=== PATIENT | female | born 1945 | race African-American/Black ===

== ENCOUNTER 2017-05-25 11:24 | Outpatient (CLI) | payer OTHER ==
[~2017-05-25 11:24] MED LIST: ASA81 MG PO; ATORVASTATIN CA10 MG PO; CARDURA XL4 MG/BOTTL PO; DETROL LA4 MG PO; DILTIAZEM 24HR120 MG PO; DITROPAN XL15 MG PO; DULOXETINE HCL30 MG PO; HYOMAX; HYZAAR 100-251 UDTAB PO; LYRICA100 MG PO; OMEPRAZOLE40 MG PO; PANTOPRAZOLE SO40 MG PO; PLAQUENIL PO; PLAVIX75 MG PO; ROBINUL FORTE2 MG PO; TOBREX5 ML OP; TOPROL XL100 MG PO; TRILIPIX; ZYLOPRIM300 MG PO
== END 2017-05-25 11:30 | disposition home or self-care (01) ==
LOC: LAB 11:24
DX: D64.89 Other specified anemias (principal); D68.8 Other specified coagulation defects; E03.8 Other specified hypothyroidism

== ENCOUNTER 2017-05-25 12:06 | Outpatient (CLI) | payer OTHER | END 2017-05-25 15:13 | disposition home or self-care (01) | LOC: RAD 12:06 | DX: R07.1 Chest pain on breathing (principal) ==

== ENCOUNTER 2017-05-31 13:13 | Inpatient (IN) | payer OTHER ==
[~2017-05-31] VITALS: Ht 165.1 cm; Wt 79.8 kg
[2017-05-31] MEDS ORDERED: OMEGA 3 1,0001 EACH PO (14:16)
[2017-05-31] MEDS ORDERED: SOTALOL80 MG PO (14:17)
[2017-05-31] MEDS ORDERED: INFUVITE50 ML IV (14:18)
[2017-05-31] MEDS ORDERED: CARDURA1 MG PO (14:18)
[2017-05-31] MEDS ORDERED: PLAQUENIL PO (14:18)
[2017-05-31] MEDS ORDERED: SINGULAIR10 MG PO (14:19)
[2017-05-31] MEDS ORDERED: DITROPAN XL15 MG PO (14:19)
[2017-05-31] MEDS ORDERED: SALINE SOLUTIO360 ML (14:20)
[2017-06-08] MEDS ORDERED: ACETAMINOPHEN-1 EAC2 PO (09:54)
[2017-06-08] MEDS ORDERED: AMOXICILLIN875 MG PO (09:54)
[2017-06-08] MEDS ORDERED: LYRICA150 MG PO (09:54)
[2017-06-08] MEDS ORDERED: CLONAZEPAM1 MG PO (09:54)
[2017-06-08] MEDS ORDERED: DOCUSATE SODIU100 MG PO (09:54)
== END 2017-06-08 17:45 | DRG 455 ==
LOC: O/R 06-07 05:00 → SURG 06-07 05:00
PROVIDERS: Orthopaedic Surgery Orthopaedic Surgery of the Spine
PROC: 0SG0071 Fusion of Lumbar Vertebral Joint with Autologous Tissue Substitute, Posterior Approach, Posterior Column, Open Approach (ICD-10-PCS; 2017-06-07)
PROC: 0ST20ZZ Resection of Lumbar Vertebral Disc, Open Approach (ICD-10-PCS; 2017-06-07)
PROC: 0SG00AJ Fusion of Lumbar Vertebral Joint with Interbody Fusion Device, Posterior Approach, Anterior Column, Open Approach (ICD-10-PCS; 2017-06-07)
PROC: 07DS3ZZ Extraction of Vertebral Bone Marrow, Percutaneous Approach (ICD-10-PCS; 2017-06-07)
PROC: 0SG00A0 Fusion of Lumbar Vertebral Joint with Interbody Fusion Device, Anterior Approach, Anterior Column, Open Approach (ICD-10-PCS; principal; 2017-06-07 07:00)
DX: M48.061 Spinal stenosis, lumbar region without neurogenic claudication (principal); M47.26 Other spondylosis with radiculopathy, lumbar region; M51.16 Intervertebral disc disorders with radiculopathy, lumbar region; I10 Essential (primary) hypertension

== ENCOUNTER → 2017-06-27 | Emergency (ER) | payer OTHER ==
[~2017-06-27] VITALS: Ht 165.1 cm; Wt 81.6 kg
[~2017-06-27] MED LIST changes: +ACETAMINOPHEN-1 EAC2 PO; +AMOXICILLIN875 MG PO; +CARDURA1 MG PO; +CLONAZEPAM1 MG PO; +DOCUSATE SODIU100 MG PO; +INFUVITE50 ML IV; +LYRICA150 MG PO; +OMEGA 3 1,0001 EACH PO; +SALINE SOLUTIO360 ML; +SINGULAIR10 MG PO; +SOTALOL80 MG PO
== END | disposition home or self-care (01) ==
LOC: ER 17:19
DX: K20.9 Esophagitis, unspecified (principal)

== ENCOUNTER 2017-07-10 11:38 | Outpatient (CLI) | payer OTHER | END 2017-07-10 13:45 | disposition home or self-care (01) | LOC: RX STUDY 11:38 | DX: R13.10 Dysphagia, unspecified (principal) ==

== ENCOUNTER 2017-12-20 09:42 | Outpatient (CLI) | payer OTHER | END 2017-12-20 09:47 | disposition home or self-care (01) | LOC: LAB 09:42 | DX: D64.89 Other specified anemias (principal); D78.89 Other postprocedural complications of the spleen; D68.8 Other specified coagulation defects; N39.0 Urinary tract infection, site not specified; R82.8 Abnormal findings on cytological and histological examination of urine ==

== ENCOUNTER → 2018-02-26 14:53 | Outpatient (CLI) | payer OTHER | END | disposition home or self-care (01) | LOC: LAB 14:53 | DX: D64.89 Other specified anemias (principal); D78.89 Other postprocedural complications of the spleen; D68.8 Other specified coagulation defects; N39.0 Urinary tract infection, site not specified; R07.89 Other chest pain ==

== ENCOUNTER 2018-03-13 05:46 | Day surgery (SDC) | payer OTHER ==
[2018-03-13] MEDS ORDERED: ULTRACET PO (11:33)
[2018-03-13] MEDS ORDERED: CIPRO100 MG PO (11:35)
== END 2018-03-13 13:40 | disposition home or self-care (01) ==
LOC: CIR.AMB 05:46
DX: N39.3 Stress incontinence (female) (male) (principal); N32.81 Overactive bladder
CPT/HCPCS: 64581; C1778

== ENCOUNTER → 2018-03-20 | Day surgery (SDC) | payer OTHER ==
[~2018-03-20] MED LIST changes: +CIPRO100 MG PO; +ULTRACET PO
== END | disposition home or self-care (01) ==
LOC: CIR.AMB 07:15
DX: N39.46 Mixed incontinence (principal); N32.81 Overactive bladder
CPT/HCPCS: 64590; C1767

== ENCOUNTER 2019-10-23 16:09 | Emergency (ER) | payer OTHER ==
[~2019-10-23] VITALS: Ht 165.1 cm; Wt 79.4 kg
[~2019-10-23 16:09] MED LIST changes: +BETAPACE80 MG PO; +CANDESARTAN-HC1 EAC2 PO; +DILT-XR120 MG PO; +DUCOSATE PO; +FOLIC PO; +FOLINIC-PLUS C1 EACH PO; +FOSAMA PO; +HYDRALAZINE HCL25 MG PO; +HYDRODIURIL12.5 MG PO; +HYDROXYCHLOROQ200 MG PO; +MIRALAX PO; +MULTIPLE VITAM1 EACH PO; +OMEGA PO; +OMEPRAZOLE PO; +OXYBUTYNIN PO; +ULTRAM50 MG PO; +VITAMIN D310 MCG/1 M PO; +XATMEP2.5 MG/1 M SUBCUTANEO
== END 2019-10-23 18:17 | disposition home or self-care (01) ==
LOC: ER 16:09
DX: R30.0 Dysuria (principal); R39.82 Chronic bladder pain

== ENCOUNTER 2019-10-29 05:40 | Day surgery (SDC) | payer OTHER ==
[2019-10-29] MEDS ORDERED: ULTRACET PO (10:46)
[2019-10-29] MEDS ORDERED: KEFLEX500 MG PO (10:46)
== END 2019-10-29 14:05 | disposition home or self-care (01) ==
LOC: CIR.AMB 05:40 → ADM 12:00 → CIR.AMB 14:05
PROVIDERS: ATTEND Obstetrics & Gynecology Gynecology
DX: N32.81 Overactive bladder (principal); N39.41 Urge incontinence; R35.0 Frequency of micturition